=== PATIENT | female | born 1940 | race Asian ===

== ENCOUNTER → 2016-06-19 | Outpatient (CLI) | payer OTHER ==
[~2016-06-19] MED LIST: ASPI-1093 PO; CALC1TAB15 PO; FISH1CAP49 PO; LEVO75TA4 PO; LISI-618 PO; SIMV20TA6 PO
== END | disposition home or self-care (01) ==
LOC: RADPV 10:42
PROVIDERS: ATTEND Family Medicine
DX: I70.0 Atherosclerosis of aorta (principal); R91.8 Other nonspecific abnormal finding of lung field
CPT/HCPCS: 71020